=== PATIENT | female | born 1985 | race Caucasian/White ===

== ENCOUNTER 2016-11-18 10:32 | Emergency (ER) | payer BC, MEDICAID ==
[~2016-11-18] VITALS: Wt 82.5 kg
[~2016-11-18 10:32] MED LIST: ATEN50TA; XOP15INH
[2016-11-18] MEDS ORDERED: SOD CHLORIDE 0.9% 1,000 ML IV STA (11:09)
[2016-11-18] MEDS ORDERED: morphine 4 MG/ML VIAL IV STA (11:09)
[2016-11-18] MEDS ORDERED: ONDANSETRON 4 MG INJ IV STA (11:09)
[2016-11-18 11:35] LABS: ADD SCAN DIFF NO
[2016-11-18 11:38] LABS: BASOPHILS % 0.3 % (0.0-2.0); EOSINOPHILS % 0.3 % (0.0-7.0); HEMATOCRIT 40.7 % (37.0-47.0); HEMOGLOBIN 13.3 g/dl (12.0-16.0); LYMPHOCYTES # 2.2 10^3/ul (0.8-2.9); LYMPHOCYTES % 19.3 % (15.0-51.0); MEAN CORPUSCULAR HEMOGLOBIN 28.1 pg (29.0-33.0); MEAN CORPUSCULAR HGB CONC 32.7 g/dl (32.0-37.0); MEAN CORPUSCULAR VOLUME 85.9 fl (82.0-101.0); MEAN PLATELET VOLUME 10.2 fl (7.4-10.4); MONOCYTE # 0.4 10^3/ul (0.3-0.9); MONOCYTES % 3.6 % (0.0-11.0); NEUTROPHIL # 8.8 10^3/ul (1.6-7.5); NEUTROPHILS % 76.2 % (39.0-77.0); PLATELET COUNT 324 10^3/UL (140-415); RED BLOOD COUNT 4.74 10^6/ul (4.20-5.40); RED CELL DISTRIBUTION WIDTH 12.8 % (11.5-14.5); WHITE BLOOD COUNT 11.5 10^3/ul (4.8-10.8)
[2016-11-18 11:43] LABS: ADD UMIC YES; URINE BILIRUBIN (Dip) NEGATIVE (NEGATIVE); URINE BLOOD (Dip) 3+ (NEGATIVE); URINE COLOR LT. YELLOW (YELLOW); URINE GLUCOSE (Dip) NEGATIVE (NEGATIVE); URINE KETONES (Dip) NEGATIVE (NEGATIVE); URINE LEUKOCYTE ESTERASE (Dip) 1+ (NEGATIVE); URINE NITRITE (Dip) POSITIVE (NEGATIVE); URINE TOTAL PROTEIN (Dip) 2+ (NEGATIVE); URINE UROBILINOGEN (Dip) 0.2 E.U./dL (0.1-1.0)
[2016-11-18 11:48] LABS: ALBUMIN 4.3 g/dl (3.3-4.9); POTASSIUM 4.1 mmol/L (3.5-5.1)
[2016-11-18 11:51] LABS: ALBUMIN/GLOBULIN RATIO 1.16; BILIRUBIN,INDIRECT 0.6 mg/dl (0-1.1); BILIRUBIN,TOTAL 0.6 mg/dl (0.2-1.3); CREATININE 0.55 mg/dl (0.44-1.00)
[2016-11-18 11:52] LABS: CALCIUM 9.4 mg/dl (8.4-10.2)
[2016-11-18 11:53] LABS: BACTERIA,URINE FEW
[2016-11-18 11:55] LABS: SQUAMOUS EPITHELIAL CELL,UR FEW
--- NOTE | 2016-11-18 13:22 | RADRPT ---
PROCEDURE: CT abdomen and pelvis without contrast. CLINICAL INDICATION: Abdominal pain. TECHNIQUE: CT scan of the abdomen and pelvis without contrast was performed on a multi-slice CT [facility] . Sagittal and coronal reformatted images were obtained from the axial source images. DLP 940.3 mGycm. CTDIvol 16.4 mGy COMPARISON: None FINDINGS: The lung bases are clear. There is limited evaluation of the solid viscera from the lack of IV con trast. There is a slightly enlarged appearance of the right ureter which demonstrate some mild surrounding fat stranding and wall thickening. There is no hydronephrosis. No visible stone is seen within the right kidney or ureter. A nonobstructing 2 mm left mid kidney renal stone is present. No left-sided ureteral stone is seen with no left-sided inflammatory changes. There is normal density of the liver with no gross focal lesion or biliary ductal dilatation. The gallbladder is unremarkable without inflammation. The spleen is unremarkable without mass. The adrenal glands are within normal limits without mass. The pancreas is unremarkable without focal lesion or surrounding inflammatory changes. There is no bowel obstruction or focal bowel inflammation. The appendix is unremarkable. There is no free air or free fluid. There are no enlarged lymph nodes. The aorta is unremarkable and there is no acute osseous abnormality. I intrauterine device is seen which appears to be slightly towards the lower uterine segment with po ssible partial extension into the cervix. The adnexal structures are grossly unremarkable. IMPRESSION: Indeterminate inflammatory changes are seen involving the right ureter without a visible stone. Thi s could represent sequelae of a stone that has already passed or could represent ascending inflammat ion or infection and can be correlated with urinalysis. Nonobstructing left mid kidney renal stone is present with no left-sided hydronephrosis or inflammat ion. No bowel obstruction or appendicitis. Intrauterine device is present and may be slightly inferiorly positioned with partial extension into the upper cervix. RPTAT: AA .Paul King MD, MD Date Time Electronically viewed and signed by .Paul King MD, MD on 11/18/2016 13:22 .J/
[2016-11-18] MEDS ORDERED: CEFTRIAXONE 1 GM/50 ML (PMX) 50 ML IVPB ONE (13:30)
[2016-11-18] MEDS ORDERED: CIPR500T4 PO (14:06)
[2016-11-18] MEDS ORDERED: HYDR-906 PO (14:07)
[2016-11-18] MEDS ORDERED: IBUP-1542 PO (14:07)
[2016-11-18] MEDS ORDERED: ONDA4TAB8 PO (14:07)
[2016-11-18] MEDS ORDERED: KETOROLAC 30 MG INJ IV STA (14:09)
--- NOTE | 2016-11-18 14:14 | ERD ---
ER Documentation Chief Complaint Date/Time DATE: 11/18/16 TIME: 14:10 Chief Complaint LOW ABD PAIN FOR 3 DAYS. DYSURIA FOR 3 DAYS. N.V MILD SOB HPI This is a 31-year-old female that presents to the ER with right-sided pelvic pain that radiates to her right flank for the last 4 days. Patient does admit to urinary frequency and dysuria. She admits to nausea and vomiting. Vomiting is nonbilious nonbloody. She does not have any fevers or chills. Her last normal menstrual period was October. Patient denies any diarrhea. Patient has not traveled anywhere. There are no sick contacts at home. ROS 12 point review of systems was done, all negative except per HPI.. Medications Home Meds Active Scripts Hydrocodone/Acetaminophen ([place] 5-325 Tablet) 1 Each Tablet, 1 TAB PO Q6H Y for PAIN, #20 TAB Prov:VICTORIA BOX 11/18/16 Ondansetron Hcl* (Zofran*) 4 Mg Tablet, 4 MG PO Q6H for NAUSEA AND/OR VOMITING, #30 TAB Prov:VICTORIA BOX 11/18/16 Ibuprofen* (Motrin*) 600 Mg Tab, 600 MG PO Q6, #30 TAB Prov:VICTORIA BOX 11/18/16 Ciprofloxacin Hcl* (Ciprofloxacin Hcl*) 500 Mg Tablet, 500 MG PO BID for 7 Days , TAB Prov:VICTORIA BOX 11/18/16 Reported Medications Atenolol* (Atenolol*) 50 Mg Tablet, daily 09/17/11 Levalbuterol* (Xopenex* HFA) 15 Gm Inha 10/19/09 Allergies Allergies: Coded Allergies: No Known Drug Allergy (Verified Allergy, Mild, 09/17/11) PMhx/Soc History of Surgery: Yes (gall bladder) Anesthesia Reaction: No Hx Neurological Disorder: No Hx Respiratory Disorders: Yes (asthma) Hx Cardiac Disorders: No Hx Psychiatric Problems: No Hx Miscellaneous Medical Probl: No Hx Alcohol Use: Yes Hx Substance Use: No Hx Tobacco Use: No Physical Exam Vitals Vital Signs Date Time Temp Pulse Resp B/P Pulse Ox O2 Delivery O2 Flow Rate FiO2 11/18/16 10:35 97.6 83 18 142/88 98 Physical Exam GENERAL: The patient is well developed and appropriate for usual state of health , in no apparent distress. HEENT: Atraumatic. CHEST: Clear to auscultation bilaterally. There are no rales, wheezes or rhonchi. HEART: Regular rate and rhythm. No murmurs, clicks, rubs or gallops. ABDOMEN: Soft, nondistended. Tender to palpation in the right lower quadrant in the right lower pelvic area. Good bowel sounds. No rebound or guarding. No gross peritonitis. No gross organomegaly or masses. No Nazario sign or McBurney point tenderness. BACK: Positive CVA tenderness NEURO: Alert and oriented. SKIN: The skin is warm and dry. Result Diagram: 11/18/16 1130 11/18/16 1130 Results 24 hrs Laboratory Tests Test 11/18/16 11:23 11/18/16 11:30 Urine Bacteria FEW Urine Bilirubin NEGATIVE Urine Clarity CLOUDY Urine Color LT. YELLOW Urine Glucose NEGATIVE% Urine Hemoglobin 3+ Urine Ketones NEGATIVE Urine Leukocyte Esterase 1+ Urine Microscopic RBC 5-10/HPF Urine Microscopic WBC >200/HPF Urine Nitrite POSITIVE Urine Specific [place] >=1.030 Urine Squamous Epithelial Cells FEW Urine Total Protein 2+ Urine Urobilinogen 0.2 E.U./dL Urine pH 6.0 Alanine Aminotransferase (ALT/SGPT) 32IU/L Albumin 4.3g/dl Albumin/Globulin Ratio 1.16 Alkaline Phosphatase 91IU/L Anion Gap 19 Aspartate Amino Transf (AST/SGOT) 30IU/L Basophils # 0.010^3/ul Basophils % 0.3% Blood Urea Nitrogen 11mg/dl Calcium Level 9.4mg/dl Carbon Dioxide Level 24mmol/L Chloride Level 104mmol/L Creatinine 0.55mg/dl Direct Bilirubin 0.00mg/dl Eosinophils # 0.010^3/ul Eosinophils % 0.3% Globulin 3.70g/dl Glucose Level 106mg/dl Hematocrit 40.7% Hemoglobin 13.3g/dl Indirect Bilirubin 0.6mg/dl Lipase 24U/L Lymphocytes # 2.210^3/ul Lymphocytes % 19.3% Mean Corpuscular Hemoglobin 28.1pg Mean Corpuscular Hemoglobin Concent 32.7g/dl Mean Corpuscular Volume 85.9fl Mean Platelet Volume 10.2fl Monocytes # 0.410^3/ul Monocytes % 3.6% Neutrophils # 8.810^3/ul Neutrophils % 76.2% Nucleated Red Blood Cells # 0.010^3/ul Nucleated Red Blood Cells % 0.0/100WBC Platelet Count 49676^3/UL Potassium Level 4.1mmol/L Red Blood Count 4.7410^6/ul Red Cell Distribution Width 12.8% Sodium Level 143mmol/L Total Bilirubin 0.6mg/dl Total Protein 8.0g/dl White Blood Count 11.510^3/ul Current Medications Medications (Trade) Dose Ordered Sig/Divina Route PRN Reason Start Time Stop Time Status Last Admin Dose Admin Sodium Chloride (NS) 1,000 ml @ 1,000 mls/hr Q1H STAT IV 11/18/16 11:09 11/18/16 12:08 DC 11/18/16 11:40 Morphine Sulfate (morphine) 4 mg ONCE STAT IV 11/18/16 11:09 11/18/16 11:10 DC 11/18/16 11:40 Ondansetron HCl 4 mg 4 mg ONCE STAT IV 11/18/16 11:09 11/18/16 11:10 DC 11/18/16 11:39 Ceftriaxone Sodium (Rocephin) 50 ml @ 100 mls/hr ONCE ONCE IVPB 11/18/16 13:30 11/18/16 13:59 DC Ketorolac Tromethamine (Toradol) 30 mg ONCE STAT IV 11/18/16 14:09 11/18/16 14:11 DC Procedures/MDM Differential diagnosis includes but is not limited to appendicitis,UTI, constipation, ectopic , ovarian torsion, PID, Mittelschmerz, fibroid, pyelonephritis, kidney stone, obstructive stone, septic stone. This is a 31- year-old female presents to the ER with right lower abdominal pain that radiates to her right flank. Patient is also complaining of urinary frequency and dysuria. Patient does have a kidney stone. On physical examination patient did have CVA tenderness. Patient will be treated for a kidney stone and pyelonephritis. She is afebrile and well-appearing. Her pain was controlled here in the ER. She was going to be given Rocephin, however patient left. [facility]. She needs to follow-up with her primary care doctor within 1-2 days return to ER sooner if symptoms worsen. My medical decision making was shared with the patient she understands and agrees with plan. Departure Diagnosis: Primary Impression: Pyelonephritis Condition: Stable Patient Instructions: Pyelonephritis, Female (Adult) Additional Instructions: Call your primary care doctor TOMORROW for an appointment during the next 1-2 days.See the doctor sooner or return here if your condition worsens before your appointment time. VICTORIA BOX Nov 18, 2016 14:13
== END 2016-11-18 14:38 | disposition home or self-care (01) ==
LOC: FTE 10:32
DX: N12 Tubulo-interstitial nephritis, not specified as acute or chronic (principal); J45.909 Unspecified asthma, uncomplicated
CPT/HCPCS: 36415; 74176; 80053; 81001; 83690; 85025; 96361; 96374; 96375; 99285; J0696; J1885; J2270; J2405; J7030; 81003